=== PATIENT | male | born 1985 | race African-American/Black ===

== ENCOUNTER 2017-03-23 06:21 | Emergency (ER) | payer OTHER ==
[2017-03-23] MEDS ORDERED: Ketorolac Tromethamine 60 MG/2 ML VIAL ONE (06:32)
== END 2017-03-23 06:55 ==
LOC: NAV ERS 06:21
DX: M54.5 Low back pain (principal); Z87.891 Personal history of nicotine dependence
CPT/HCPCS: 96372; J1885